=== PATIENT | male | born 1970 | race African-American/Black ===

== ENCOUNTER 2021-01-04 09:30 | Emergency (ER) | payer SELFPAY ==
[~2021-01-04] VITALS: Ht 185.4 cm; Wt 63.6 kg
[~2021-01-04 09:30] MED LIST: FAMO-63 PO; METR500T PO
[2021-01-04 10:20] VITALS: BP 149/88
[2021-01-04] MEDS ORDERED: IBUP-1007 PO (11:42)
[2021-01-04] MEDS ORDERED: CEPH500C PO (11:42)
--- NOTE | 2021-01-04 11:43 | PHYS DOC ---
Past Medical History Past Medical History: No Pertinent History Past Surgical History: No Surgical History Smoking Status: Current Every Day Smoker Alcohol Use: Occasionally Drug Use: None, Cocaine General Adult EDM: Chief Complaint: THUMB HPI: HPI: Patient is a 50 year old male who presents with patient states for the last 5 days he has had right thumb fingertip swelling. He states he does not remember an injury but has been out doing yard work. He states that it is very painful. The skin does look like it has been peeled away around the thumb tip and I asked the patient about he states that he has been peeling the thumb and soaking it in peroxide. Patient is educated not to do so as this can cause infection. Patient rates his pain at a 8 out of 10. He still has full range of motion of the thumb and there is no numbness or tingling. There is no redness to suggest cellulitis. Patient denies fever, shortness of breath, cough, body aches, focal weakness, numbness or tingling, drainage. Denies past medical history. Review of Systems: Review of Systems: Constitutional: Denies fever or chills. [] Eyes: Denies change in visual acuity. [] HENT: Denies nasal congestion or sore throat. [] Respiratory: Denies cough or shortness of breath. [] Cardiovascular: Denies chest pain or + left thumb tip 1+ edema. [] GI: Denies abdominal pain, nausea, vomiting, bloody stools or diarrhea. [] : Denies dysuria. [] Musculoskeletal: Denies back pain or joint pain. + Left thumb tip [] Integument: Denies rash. + Left thumb tip infection [] Neurologic: Denies headache, focal weakness or sensory changes. [] Endocrine: Denies polyuria or polydipsia. [] Lymphatic: Denies swollen glands. [] Psychiatric: Denies depression or anxiety. [] Heart Score: C/O Chest Pain: No Risk Factors: Risk Factors: DM, Current or recent (<one month) smoker, HTN, HLP, family history of CAD, obesity. Risk Scores: Score 0 - 3: 2.5% MACE over next 6 weeks - Discharge Home Score 4 - 6: 20.3% MACE over next 6 weeks - Admit for Clinical Observation Score 7 - 10: 72.7% MACE over next 6 weeks - Early Invasive Strategies Allergies: Allergies: Allergies Coded Allergies Type Severity Reaction Last Updated Verified lactose Adverse Reaction Intermediate gi upset 12/10/14 Yes Physical Exam: PE: Constitutional: Well developed, well nourished, no acute distress, non-toxic appearance. [] HENT: Normocephalic, atraumatic, bilateral external ears normal, oropharynx moist, no oral exudates, nose normal. [] Eyes: PERRLA, EOMI, conjunctiva normal, no discharge. [] Neck: Normal range of motion, no tenderness, supple, no stridor. [] Cardiovascular:Heart rate regular rhythm, no murmur [] Lungs & Thorax: Bilateral breath sounds clear to auscultation [] Abdomen: Bowel sounds normal, soft, no tenderness, no masses, no pulsatile masses. [] Skin: Warm, dry, no erythema, no rash. Left thumb tip peeling [] Back: No tenderness, no CVA tenderness. [] Extremities: Left thumb tip tenderness, no cyanosis, no clubbing, ROM intact,1+edema. [] Neurologic: Alert and oriented X 3, normal motor function, normal sensory function, no focal deficits noted. [] Psychologic: Affect normal, judgement normal, mood normal. [] Current Patient Data: Vital Signs: Vital Signs Date Time Temp Pulse Resp B/P (MAP) Pulse Ox O2 Delivery O2 Flow Rate FiO2 01/04/21 10:20 97.9 70 16 149/88 (108) 98 Room Air 97.9 EKG: EKG: [] Radiology/Procedures: Radiology/Procedures: [] Course & Med Decision Making: Course & Med Decision Making Pertinent Labs and Imaging studies reviewed. (See chart for details) See HPI. Alert and oriented x4. Ambulatory with a steady gait. Skin pink warm and dry. Radial pulse strong are present. 1+ swelling to the left upper thumb. It is tender. There is no redness to suggest cellulitis. There is no drainage or wound. There is no certain area of the thumb to drain or anywhere that looks to be a fluid-filled pocket to be drained. Cap refills less than 2 seconds. He has full range of motion of the whole thumb joint. There is no signs or symptoms to suggest cellulitis or tenosynovitis. Patient is told that he needs to come back in 48 hours after being on antibiotics for a recheck. [] Dragon Disclaimer: Nikita Disclaimer: This electronic medical record was generated, in whole or in part, using a voice recognition dictation system. Departure Departure Impression: Primary Impression: Thumb swelling Additional Impression: Skin infection Disposition: HOME / SELF CARE / HOMELESS Condition: STABLE Referrals: NO PCP (PCP) Patient Instructions: Skin Infections Additional Instructions: Return in 48 hours after antibiotic use for a recheck of the infection. Do not pick at it. Use Epson salt soaks in warm water. Take medication as prescribed and with food. Scripts Ibuprofen (IBUPROFEN) 600 Mg Tablet 600 MG PO PRN Q6HRS PRN for INFLAMMATION, #20 TAB Prov: PAUL OLIVAS APRN 01/04/21 Cephalexin (CEPHALEXIN) 500 Mg Capsule 1 CAP PO QID, #40 CAP Prov: PAUL OLIVAS APRN 01/04/21 PAUL OLIVAS APRN Jan 04, 2021 11:43
[2021-01-04] MEDS ORDERED: IBUPROFEN 200 MG TABLET. PO ONE (12:00)
== END 2021-01-04 12:09 | disposition home or self-care (01) ==
LOC: ER 09:30
DX: R22.31 Localized swelling, mass and lump, right upper limb (principal); L08.89 Other specified local infections of the skin and subcutaneous tissue; F17.200 Nicotine dependence, unspecified, uncomplicated; Z91.011 Allergy to milk products
CPT/HCPCS: 99283

== ENCOUNTER 2021-08-26 01:48 | Emergency (ER) | payer SELFPAY ==
[~2021-08-26] VITALS: Ht 185.4 cm; Wt 136.4 kg
[~2021-08-26 01:48] MED LIST changes: +CEPH500C PO; +IBUP-1007 PO
[2021-08-26] MEDS: IV NORMAL SALINE 1000ML BAG 1,000 ML IV ONE (02:32)
[2021-08-26] MEDS: MORPHINE SULFATE 4 MG/ML INJ. IVP ONE ×2 (02:32→04:32)
--- NOTE | 2021-08-26 02:37 | PHYS DOC ---
Past Medical History Past Medical History: No Pertinent History Additional Past Medical Histor: STOMACH ULCERS Past Surgical History: No Surgical History Smoking Status: Current Every Day Smoker Alcohol Use: Occasionally Drug Use: None, Cocaine General Adult EDM: Chief Complaint: ABDOMINAL PAIN HPI: HPI: Patient is a 51 year old male who presents with several days of epigastric pain. Started on Thursday. Sharp. Worse after eating food. Does not radiate. Not associated with fever, chills, nausea, vomiting, diarrhea, or dark/bloody stools. States that he does drink approximately a pint of vodka per week, and 1 beer every other day. Admits to cocaine use as well. Uses via snorting, denies IVDU. No history of intra-abdominal surgeries. Denies history of pancreatitis. Review of Systems: Review of Systems: Constitutional: Denies fever or chills. [] Eyes: Denies change in visual acuity. [] HENT: Denies nasal congestion or sore throat. [] Respiratory: Denies cough or shortness of breath. [] Cardiovascular: Denies chest pain or edema. [] GI: Reports abdominal pain. Denies nausea, vomiting, bloody stools or diarrhea. [] : Denies dysuria. [] Musculoskeletal: Denies back pain or joint pain. [] Integument: Denies rash. [] Neurologic: Denies headache, focal weakness or sensory changes. [] Endocrine: Denies polyuria or polydipsia. [] Lymphatic: Denies swollen glands. [] Heart Score: C/O Chest Pain: No Current Medications: Current Medications Medications (Trade) Dose Ordered Sig/Rolando Start Time Stop Time Status Last Admin Dose Admin Morphine Sulfate (Morphine Sulfate) 4 mg 1X ONCE 08/26/21 02:30 08/26/21 02:31 DC Sodium Chloride 1,000 ml @ 1,000 mls/hr 1X ONCE 08/26/21 02:30 08/26/21 03:29 Allergies: Allergies: Allergies Coded Allergies Type Severity Reaction Last Updated Verified lactose Adverse Reaction Intermediate gi upset 12/10/14 Yes Physical Exam: PE: Constitutional: Well developed, well nourished, no acute distress, non-toxic appearance. [] Neck: supple, no stridor. [] Cardiovascular:Heart rate regular rhythm, no murmur [] Lungs & Thorax: Bilateral breath sounds clear to auscultation [] Abdomen: Soft, nondistended, mild epigastric tenderness to palpation. No guarding or rebound. Skin: Warm, dry, no erythema, no rash. [] Back: No tenderness, no CVA tenderness. [] Extremities: No tenderness, no cyanosis, no clubbing, ROM intact, no edema. [] Neurologic: Alert and oriented X 3, normal motor function, normal sensory function, no focal deficits noted. [] Psychologic: Affect normal, judgement normal, mood normal. [] Current Patient Data: Vital Signs: Vital Signs Date Time Temp Pulse Resp B/P (MAP) Pulse Ox O2 Delivery O2 Flow Rate FiO2 08/26/21 02:05 98.2 86 17 185/88 (120) 98 Room Air 98.2 EKG: EKG: [] Sinus rhythm. Rate 82. Borderline left axis deviation. No ischemic changes. Radiology/Procedures: Radiology/Procedures: [] Impression: [facility] [address] [place], [place] [id number] IMAGING REPORT Signed PATIENT: KEIRA SAGE ACCOUNT: [id number] : 1970 LOCATION: ER AGE: 51 SEX: M EXAM STATUS: REG ER ORD. PHYSICIAN: KO ADAME MD REASON: epigastric pain, omni 300 75 ml iv PROCEDURE: CT ABD PELV W/ IV CONTRST ONLY EXAM: CT ABDOMEN/PELVIS WITH CONTRAST. HISTORY: Epigastric pain. TECHNIQUE: Computed tomography of the abdomen and pelvis was performed after the intravenous administration of iodinated contrast. One or more of the following individualized dose reduction techniques were utilized for this examination: 1. Automated exposure control. 2. Adjustment of the mA and/or kV according to patient size. 3. Use of iterative reconstruction technique. COMPARISON: 05/13/2017. FINDINGS: Lung windows through the visualized portions of the bases reveal a 6 mm pleural-based nodule in the right lower lobe on image 13 is stable since 2017 and likely benign. Other smaller nodules elsewhere are also stable and benign. Bone windows reveal no suspicious lesions. The liver, gallbladder, pancreas, adrenal glands, and kidneys are unremarkable. There is a calcified granuloma in the spleen. There are no pathologically enlarged lymph nodes. The appendix is not inflamed. There is no small bowel obstruction. IMPRESSION: 1. No cause for acute pain is identified. Electronically signed by: Danny Sheppard MD (08/26/2021 5:02 AM) [facility] DICTATED and SIGNED BY: KO SHEPPARD MD DATE: 08/26/21 [id number] 0 Course & Med Decision Making: Course & Med Decision Making Pertinent Labs and Imaging studies reviewed. (See chart for details) Patient 51-year-old male who presents with epigastric pain exacerbated by food intake. On arrival is afebrile, hemodynamically stable, and non-toxic appearing. Abd exam with epigastric ttp. DDx includes biliary disease, pancreatitis, gastritis, PUD. CBC, CMP, Lipase, CT abd/pelvis ordered to further differentiate. [address] negative. Likely gastritis or ulcerative disease. No indication of bleeding PUD. Will provide with GI f/u as an outpatient and instructions for PPI and carafate. [address] [employer] Disclaimer: [employer] [facility] Disclaimer: This electronic medical record was generated, in whole or in part, using a voice recognition dictation system. Departure Departure Impression: Primary Impression: Epigastric pain Disposition: HOME / SELF CARE / HOMELESS Condition: STABLE Referrals: NO PCP (PCP) KODY SHORT MD Please follow up with Dr. Short for your pain. Patient Instructions: Peptic Ulcer Disease Additional Instructions: Your labs and CT scan were reassuring. Sometimes pain like this can be caused by inflammation or ulcers in your stomach. Please take an acid reducing medication called omeprazole 40 mg daily. Please take 30 minutes prior to your first meal of the day. You can also use Carafate, medication outlines your stomach to try to treat your symptoms. The only way to diagnose ulcers is with a scope of your stomach.You will need to see a quality control engineering technician to have this looked into further. Please call Dr. Short's office to schedule a follow up appointment. Please avoid the following because they make ulcers worse: -alcohol -tobacco -caffeine -spicy foods -NSAID medications (ibuprofen/advil, naproxen/aleve) Scripts Hydrocodone Bit/Acetaminophen (HYDROCODONE-APAP 5-325 ) 1 Tab Tablet 1 TAB PO PRN Q6HRS PRN for PAIN, #5 TAB 0 Refills Prov: KO ADAME MD 08/26/21 Sucralfate (CARAFATE) 1 Gm Tablet 1 TAB PO QID for 15 Days, #60 TAB 1 Refill Prov: KO ADAME MD 08/26/21 Omeprazole (OMEPRAZOLE) 40 Mg Capsule. 1 CAP PO DAILY, #30 CAP 5 Refills Prov: KO ADAME MD 08/26/21 KO ADAME MD Aug 26, 2021 02:37
[2021-08-26 02:38] LABS: BASO # 0.2 x10^3/uL (0.0-0.2); BASO % 1 % (0-3); EOS # 0.1 x10^3/uL (0.0-0.7); EOS % 1 % (0-3); HEMATOCRIT 42.6 % (39.0-53.0); HEMOGLOBIN 14.3 g/dL (13.0-17.5); LYMPH # 3.9 x10^3/uL (1.0-4.8); LYMPH % 36 % (24-48); MEAN CORPUSCULAR HEMOGLOBIN 29 pg (25-35); MEAN CORPUSCULAR HGB CONC 34 g/dL (31-37); MEAN CORPUSCULAR VOLUME 85 fL (79-100); MONO # 1.2 x10^3/uL (0.0-1.1); MONO % 11 % (0-9); NEUT # 5.6 x10^3/uL (1.8-7.7); NEUT % 52 % (31-73); PLATELET COUNT 467 x10^3/uL (140-400); RED BLOOD COUNT 5.01 x10^6/uL (4.30-5.70); RED CELL DISTRIBUTION WIDTH 13.6 % (11.5-14.5)
--- NOTE | 2021-08-26 03:01 | EKG ---
[facility] [address] [place] [address] Test Date: 2021-08-26 Test Time: 02:24:12 Pat Name: KEIRA SAGE Department: Room: Gender: Guard Sergeant: : 1970 Requested By: KO ADAME Order Number: [id number] Reading MD: Aung Herrera Measurements Intervals [place] Rate: 82 P: 49 IN: 166 QRS: 1 QRSD: 108 T: 43 QT: 370 QTc: 435 Interpretive Statements SINUS RHYTHM MILD NON SPECIFIC ST CHANGES Electronically Signed On 08-27-2021 12:41:12 PRINTING SERVICES COORDINATOR by Aung Herrera
[2021-08-26 03:07] LABS: CALCIUM 8.7 mg/dL (8.5-10.1); GFR 96.1
[2021-08-26 03:13] LABS: ALBUMIN/GLOBULIN RATIO 0.6 (1.0-1.7); TOTAL BILIRUBIN 0.5 mg/dL (0.2-1.0); TOTAL PROTEIN 7.9 g/dL (6.4-8.2)
[2021-08-26] MEDS ORDERED: CONTRAST GIVEN. MC PRN (03:15)
[2021-08-26 03:25] LABS: BILIRUBIN,URINE NEGATIVE (NEG); CLARITY,URINE CLEAR; COLOR,URINE YELLOW; NITRITE,URINE NEGATIVE (NEG); PH,URINE 7.5 (<5.0-8.0); PROTEIN,URINE NEGATIVE (NEG-TRACE); UROBILINOGEN,URINE 0.2 mg/dL (0.2 mg/dL)
[2021-08-26 03:57] LABS: BACTERIA,URINE 0 /HPF (0-FEW); RBC,URINE OCC /HPF (0-2); WBC,URINE OCC /HPF (0-4)
[2021-08-26] MEDS: IOHEXOL 300 MG/ML 100ML VIAL. IV ONE (04:05)
--- NOTE | 2021-08-26 05:04 | RAD ---
EXAM: CT ABDOMEN/PELVIS WITH CONTRAST. HISTORY: Epigastric pain. TECHNIQUE: Computed tomography of the abdomen and pelvis was performed after the intravenous administ ration of iodinated contrast. One or more of the following individualized dose reduction techniques w ere utilized for this examination: 1. Automated exposure control. 2. Adjustment of the mA and/or kV according to patient size. 3. Use of iterative reconstruction technique. COMPARISON: 05/13/2017. FINDINGS: Lung windows through the visualized portions of the bases reveal a 6 mm pleural-based nodul e in the right lower lobe on image 13 is stable since 2017 and likely benign. Other smaller nodules e lsewhere are also stable and benign. Bone windows reveal no suspicious lesions. The liver, gallbladder, pancreas, adrenal glands, and kidneys are unremarkable. There is a calcified granuloma in the spleen. There are no pathologically enlarged lymph nodes. The appendix is not inflamed. There is no small bowel obstruction. IMPRESSION: 1. No cause for acute pain is identified. Electronically signed by: Danny Sheppard MD (08/26/2021 5:02 AM) [facility]
[2021-08-26 05:12] VITALS: BP 148/73
[2021-08-26] MEDS ORDERED: HYDR-2761 PO (05:21)
[2021-08-26] MEDS: SUCRALFATE 1 GM TABLET. PO ONE (05:21)
[2021-08-26] MEDS ORDERED: SUCR1TAB35 PO (05:21)
[2021-08-26] MEDS ORDERED: OMEP40CA7 PO (05:21)
== END 2021-08-26 05:30 | disposition home or self-care (01) ==
LOC: ER 01:48 → EDBD 01:48 → ER 05:30
DX: R10.13 Epigastric pain (principal); F17.200 Nicotine dependence, unspecified, uncomplicated; Z91.011 Allergy to milk products
CPT/HCPCS: 36415; 74177; 80053; 81001; 83690; 85025; 93005; 96361; 96374; 96376; 99285; J2270; J7030; Q9967